=== PATIENT | male | born 1945 | race Caucasian/White ===

== ENCOUNTER 2025-01-24 11:17 | Inpatient (IN) | payer MEDICARE, SELFPAY ==
[2025-01-24] VITALS (53 sets, daily range): BP systolic 56–195; BP diastolic 27–100; PULSE 72–126; RESP 12–27; TEMP 33.2–36.7; O2SAT 90–100; BMI 41.0
--- NOTE | ~2025-01-24 | CT_ITS ---
CT brain wo con Ordering provider: Freddy Stafford MD History: 79 years Male with . fall . Comparison: February 07, 2014 Technique: CT of the head without contrast. Radiation reduction technique utilized. The dose-length p roduct was 681 mGy-cm. FINDINGS: BRAIN PARENCHYMA AND CSF SPACES: Mild leukoaraiosis and diffuse cortical atrophy. Mild atheromatous d isease. No midline shift, mass effect or hemorrhage. The brain parenchyma and CSF spaces are otherwi se normal. VISUALIZED PARANASAL SINUSES: Right maxillary, left sphenoid and bilateral ethmoid sinus disease. Oth erwise, Well aerated. MASTOIDS: Well aerated. BONES: The bones appear intact. SOFT TISSUES: Visualized nasopharynx is normal. Superficial soft tissues are normal. IMPRESSION: No acute intracranial findings. Reviewed, dictated and finalized at location A.
--- NOTE | ~2025-01-24 | XR_ITS ---
XR abdomen gastric tube insert Ordering provider: Freddy Stafford MD History: . OG PLACEMENT . Comparison: None. FINDINGS/impression: No definite orogastric tube is seen in the stomach. Tube is seen in the mid thoracic area which may be endotracheal tube or nasogastric tube. Reviewed, dictated and finalized at location A.
--- NOTE | ~2025-01-24 | CT_ITS ---
EXAMINATION: CTA chest abdomen pelvis DATE: 01/24/2025 14:14 INDICATION: V. Fib cardiac arrest. Assess for dissection. TECHNIQUE: Computed tomographic angiography (CTA) of the chest, abdomen, and pelvis was performed wit hout and with 100 mL Omnipaque-350 intravenous contrast. Volume-rendered 3D-reconstructions of the ao rta and large arteries were constructed by the technologist on a separate workstation. Automated expo sure control and iterative reconstruction technique were employed. The dose-length product was [id number] mGy-cm. COMPARISON: None FINDINGS: Chest: Endotracheal tube tip 3.3 cm above the jony. Nasogastric tube with distal tip in proximal side port in the body of the stomach. Dependent consolidation in the bilateral upper and lower lobes due to at least in part to atelectasis however there is decreased density with some of the interspaces and cou ld not exclude superimposed pneumonia. Perihilar predominant groundglass opacities in the bilateral u pper lobes which could represent additional atelectasis, pulmonary edema or pneumonia. Calcified pulm onary nodules in the left upper and right lower lobes consistent with old granulomatous disease. No p leural effusion. Cardiomegaly. Atherosclerotic coronary artery calcific lesion. No pericardial effusi on. Bilateral gynecomastia. Severe thoracic spondylosis. Abdomen and pelvis: Liver, gallbladder, spleen, pancreas, bilateral adrenal glands are normal. There are bilateral renal cysts measuring up to 5.0 cm. Centeno catheter within the decompressed bladder. Prostatomegaly. There i s fluid throughout the large and small bowel consistent with diarrhea. There is moderate colonic dive rticulosis with a sigmoid and descending colon predominance without adjacent inflammatory change to s uggest diverticulitis. Normal appendix. No free intraperitoneal gas or fluid. No pathologically enla rged abdominal or pelvic lymphadenopathy. There is calcified atherosclerosis of the normal caliber ao rta and many of the other arteries without hemodynamically significant stenosis or dissection.. [place] re lumbar spondylosis. IMPRESSION: 1. Scattered nonhemodynamically significant atherosclerotic plaque along the normal caliber thoracic and abdominal aorta with no dissection. 2. Consolidation in the dependent aspect of both lungs due to at least in part atelectasis however branham perimposed pneumonia not excludable. 3. Mild bilateral perihilar groundglass opacities which could represent atelectasis, mild pulmonary e danica or pneumonia. 4. Cardiomegaly. 5. Fluid throughout the large and small bowel consistent with nonspecific diarrhea. Reviewed, dictated and finalized at location A. IMPRESSION: 1. Scattered nonhemodynamically significant atherosclerotic plaque along the no rmal caliber thoracic and abdominal aorta with no dissection. 2. Consolidation in the dependent aspect of both lungs due to at least in part atelectasis however superimposed pneumonia not excludable. 3. Mild bilateral perihilar groundglass opacities which could represent atelect asis, mild pulmonary edema or pneumonia. 4. Cardiomegaly. 5. Fluid throughout the large and small bowel consistent with nonspecific diarr hea.
--- NOTE | ~2025-01-24 | XR_ITS ---
XR chest ET placement Ordering provider: Freddy Stafford MD History: 79 years Male with . post intubation . Comparison: None. FINDINGS: MEDIASTINUM: The cardiac silhouette is moderately enlarged. Congestive cas. Endotracheal tube with t he tip above the jony. Retraction is advised. LUNGS: No effusions or pneumothorax. Bilateral perihilar, upper and lower lobe opacification suggesti ve of pneumonia versus pulmonary edema. OTHER: No free air under the diaphragm. IMPRESSION: bilateral pneumonia versus pulmonary edema. Endotracheal tube with the tip above the jony. Retraction by about 2 to 3 cm is advised. Reviewed, dictated and finalized at location A.
--- NOTE | ~2025-01-24 | XR_ITS ---
XR abdomen gastric tube rechec INDICATION: Evaluate NG tube position. TECHNIQUE: Limited KUB perform for evaluating NG tube . COMPARISON: No prior studies for comparison. FINDINGS: NG tube tip in the stomach. Visualized bowel gas pattern is unremarkable. IMPRESSION: 1: NG tube tip in the stomach. Reviewed, dictated and finalized at location B.
--- NOTE | 2025-01-24 11:22 | ECG_ITS ---
Test Date: 2025-01-24 11:20:26 Measurements Intervals [place] Rate: 139 P: 34 FL: 129 QRS: 121 QRSD: 160 T: 0 QT: 243 QTc: 370 Interpretive Statements UNDETERMINED REGULAR RHYTHM ST ELEVATION IN AVR AND ANTEROSEPTAL LEADS WITH RECIPROCAL CHANGES, CONCERNING FOR ACUTE INJURY PATTERN MARKED RIGHT AXIS DEVIATION [QRS AXIS > 100] INTRAVENTRICULAR CONDUCTION DELAY [130+ ms QRS DURATION] CRITICAL ECG No previous ECG available for comparison Electronically Signed On 01-24-2025 13:20:21 CDT by Homero Hicks M.D.
--- NOTE | 2025-01-24 11:30 | PC.NURSE ---
1125: 30mg Etomidate and 120mg of Succinylcholine per EDP Dr. Stafford. VORB. 1128: pt intubated. 7.5mm tube. 23cm at the lip.
[2025-01-24 11:35] LABS: Basophils Absolute Auto 0.1 K/mm3 (0.0-0.1); Basophils Percent Auto 0.6 % (0.2-1.2); Eosinophils Absolute Auto 0.3 K/mm3 (0-0.3); Eosinophils Percent Auto 2.6 % (0-4.4); Hematocrit 44.3 % (42.0-52.0); Hemoglobin 13.4 g/dL (14.0-18.0); Immature Granulocyte Absolute 0.37 K/mm3 (0.00-0.031); Immature Granulocyte Percent A 3.1 % (0-0.5); Lymphocytes Percent Auto 52.9 % (18.3-44.2); Mean Corpuscular HGB Conc 30.2 g/dl (32-36); Mean Corpuscular Volume 99.3 fl (80-100); Monocytes Absolute Auto 0.4 K/mm3 (0.1-0.6); Monocytes Percent Auto 2.9 % (2.6-8.5); Neutrophils Absolute Auto 4.6 K/mm3 (1.3-6.7); Neutrophils Percent Auto 37.9 % (45.5-73.1); Platelet Count Result 217 k/mm3 (150-375); Red Blood Count 4.46 M/mm3 (4.6-6.20); Red Cell Distribution Width 13.5 % (11.5-14.5); White Blood Count 12.1 K/mm3 (4.5-10.0)
[2025-01-24] MEDS: CALCIUM GLUCONATE 1,000 MG/10 ML VIAL 1000 MG IV PUSH (11:49)
--- NOTE | 2025-01-24 11:50 | PC.NURSE ---
per Dr. Stafford, gave 1000mg of calcium gluconate and 4.2g of Sodium Bicarb. Repeat EKG 10min after administration. JONG.
[2025-01-24 11:51] LABS: INR 1.1; Prothrombin Time 14.8 Seconds (11.1-14.7)
[2025-01-24 11:52] LABS: Alanine Aminotransferase 250 U/L (6-50); Albumin Level 4.1 g/dL (3.5-5.1); Alkaline Phosphatase 69 U/L (38-126); Anion Gap 16 mmol/L (4-12); Aspartate Amino Transferase 287 U/L (17-59); Bilirubin,Total 0.7 mg/dL (0.2-1.3); Blood Urea Nitrogen 20 mg/dL (9-20); Carbon Dioxide 22 mmol/L (22-30); Chloride 102 mmol/L (98-107); Estimated Glomerular Filt Rate 45; Glucose 277 mg/dL (65-110); Potassium 3.2 mmol/L (3.4-5.0); Sodium 140 mmol/L (137-145)
--- OUTSIDE RECORDS SUMMARY | 2025-01-24 11:53 | XMS_ITS | Clinical Summary ---
Author Organization [facility] Address [address] [place] [address] Care Team Providers Care Insurance Claims Analyst Name Role Phone Unavailable Primary Care Provider Unavailabl e Source Comments [facility],non-owned Affiliates and Associated Physician Practices is amultiple site organization consisting of ambulatory clinics and hospital sitesin [place], [place], [place] and [place]. This disclosure is being madepursuant to the Care Everywhere program and may not contain all information available regarding this patient. 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 Gender Identity Not on file Sexual Orientation Not on file Plan of Treatment Health Maintenance Due Date Last Done Comments DTAP/TDAP/TD VACCINES (1 - Tdap) 12/03/1963 PNEUMOCOCCAL VACCINE 50+ (1 of 1 - PCV) 1994 ZOSTER VACCINE (1 of 2) 1994 Respiratory Syncytial Virus (RSV) Vaccine Pt: or over 60 yrs (1 - 1-dose 75+ series) 12/03/2019 COVID-19 VACCINE ( - 2023-2 5 season) 2024 DEPRESSION SCREENING 09/06/2024 MEDICARE AWV CALENDAR YEAR 2024 INFLUENZA VACCINE (Season Ended) 2025 HEPATITIS B VACCINE Aged Out No longe r eligible based on patient's age to complete this topic HIB VACCINE Aged Out No longer eligi ble based on patient's age to complete this topic HPV VACCINE Aged Out No longer eligi ble based on patient's age to complete this topic MENINGOCOCCAL (Group B) VACC INE SHARED DECISION-MAKING Aged Out No longer eligibl e based on patient's age to complete this topic MENINGOCOCCAL GROUPS A/C/Y/W VACCINE Aged Out No longer eligible b ased on patient's age to complete this topic Insurance [facility] MEDICARE ADV HMO & PPO
--- OUTSIDE RECORDS SUMMARY | 2025-01-24 11:53 | XMS_ITS | Encounter Summary ---
Author Organization [facility] Address [address] [place] [address] Care Team Providers Care Access Developer Name Role Phone Unavailable Primary Care Provider Unavailabl e Encounter Details Date Type Department Care Team (Late st Contact Info) Description 08/19/2023 Lab Requisition [facility] [address] [place] [id number] Erin Rosenthal MD [address] [place] [address] [place] [address] Inflamed seborrheic keratosis Social History Tobacco Use Types Packs/Day Years Used Date Smoking Tobacco: Never Assessed Sex and Gender Information Value Date Recorded Sex Assigned at Not on file 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 Gender Identity Not on file Sexual Orientation Not on file documented as of this encounter Plan of Treatment Not on file documented as of this encounter Procedures Procedure Name Priority Date/Time Associated Diagnosis Comments DERMATOPATHOLOGY Routine 08/19/2023 3:33 AM 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 SKIN, right medial malar cheek: SEBORRHEIC KERATOSIS, INFLAMED (L82.0) INTRADERMAL MELANOCYTIC NEVUS (D22.39) 3 5:01 PM [facility] DERMATOPATHOLOGY LABORATORY at [address] WORKERS COMPENSATION ATTORNEY Clinical History Irritated Seborrheic Keratosis 3 5:01 PM [facility] DERMATOPATHOLOGY [facility]OR[facility] Gross Description Specimen A: Received is one formalin filled container labeled with the patient's name and designated right medial malar cheek. The specimen consists of a shave biopsy measuring 10x7x4 mm. Jar 0. 3 5:01 PM [facility] DERMATOPATHOLOGY [facility]ORAT[facility] Microscopic Description Specimen A. SKIN, right medial malar cheek: There is hyperkeratosis, parakeratosis, papillomatosis, and acanthosis of the epidermis. There is a lymphohistiocytic infiltrate within the papillary dermis that is focally lichenoid. There are nests of cytologically bland melanocytes within the dermis that mature with depth. 3 5:01 PM [facility] DERMATOPATHOLOGY [facility]ORATORY Disclaimer An external and internal positive and negative controls are appropriate for the histochemical, immunohistochemical and immunofluorescence stain(s) in this case (if any), except where stated explicitly. The performance characteristics of the stain(s) cited in this report were developed and its performance characteristic determined by the Dermatopathology Laboratory at [facility], directed by Dr. Donald Reaves. These tests need not be, and therefore are not, approved by the [place] Food and Drug Administration. The tests are used for clinical purposes. 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
[2025-01-24] MEDS: FENTANYL 2,500MCG/NS250ML(*CRX 2,500 MCG/250 ML BAG IV CONT (12:09)
[2025-01-24] MEDS: MIDAZOLAM 100MG/NS 100ML(*CRX) 100 MG/100 ML BAG IV CONT (12:10)
--- NOTE | 2025-01-24 12:24 | ECG_ITS ---
Test Date: 2025-01-24 12:29:49 Measurements Intervals [place] Rate: 89 P: 41 NV: 178 QRS: 72 QRSD: 120 T: 23 QT: 369 QTc: 450 Interpretive Statements SINUS RHYTHM MODERATE INTRAVENTRICULAR CONDUCTION DELAY [105+ ms QRS DURATION, 80+ ms Q/S IN V1/V2, NO Q AND 60+ ms R IN I/aVL/V5/V6] INFERIOR ST-ELEVATION CONSISTENT WITH ACUTE INJURY PATTERN WITH RECIPROCAL CHANGES CRITICAL ECG Electronically Signed On 01-24-2025 13:21:35 CDT by Homero Hicks M.D.
[2025-01-24 12:36] LABS: Magnesium 2.4 mg/dL (1.6-2.3)
--- NOTE | 2025-01-24 12:45 | PC.NURSE ---
due to impression of abdominal X-ray of OG tube not seen, removed the tube and inserted new one. auscultation with insufflation of air.
[2025-01-24 12:47] LABS: NT Pro B Type Natriuretic Pept 796 pg/mL (19.9-100); Troponin I 0.129 ng/mL (0.000-0.034)
--- NOTE | 2025-01-24 13:00 | ED_ITS ---
HPI - CPR General Chief Complaint: Cardiac Arrest/CPR Stated Complaint: post cardiac arrest/ROSC Time Seen by Provider: 01/24/25 11:27 History of Present Illness HPI narrative: Patient is an 79-year-old male who presents ER after having witnessed cardiac arrest. Patient had been having back pain recently. He also been having intermittent dizziness over last few months. Recently had an MRI of the brain but unknown what the results were. That was at [facility]. While watching TV with his patient suddenly jerked and became unresponsive. EMS arrived shortly thereafter. He was in V-tach and received 1 shock. He then went to [facility] before having return of spontaneous circulation. Here patient has supraglottic airway in place and is breathing on his own. The initial EKG with wide QRS and nonspecific ST changes. Related Data Home Medications ?Medication ?Instructions ?Recorded ?Confirmed ?Last Taken ?Type atorvastatin 10 mg tablet 10 mg PO QPM 01/24/25 01/24/25 01/23/25 History calcium carbonate (Tums) 300 mg PO QID PRN dyspepsia 01/24/25 01/24/25 01/23/25 History hydrochlorothiazide 12.5 mg capsule 12.5 mg PO QAM 01/24/25 01/24/25 01/23/25 History multivitamin (One Daily 1 tablet PO DAILY 01/24/25 01/24/25 01/23/25 History Multivitamin tablet) Allergies Allergy/AdvReac Type Severity Reaction Status Date / Time No Known Allergies Allergy Verified 09/03/20 09:53 Review of Systems 2 Review of Systems: ROS unobtainable: Yes unobtainable due to endotracheal tube PMFSH Past Medical History Medical History (Updated 01/24/25 @ 14:01 by Elbert Mora MD) Hyperlipidemia Hypertension Surgical History Surgical History History of excision of mass 08/16/20 excision of 3cm back mass Status post osteotomy tibia History of bilateral knee replacement History of bilateral knee arthroplasty History of carpal tunnel repair History of vasectomy History of hemorrhoidectomy History of tonsillectomy History of colonoscopy Social History Social History Smoking status: Former smoker Alcohol intake: never Alcohol use details: rare Substance use: never Substance use type: does not use Living arrangements: with family Occupation/Education: retired Spiritual care concerns: No Exam 2 Narrative: GENERAL: Ill-appearing, morbidly obese. HEAD: Normocephalic, atraumatic. EYES: PERRL and EOMI. ENT: Mucous membranes moist. CHEST: Clear to auscultation. No respiratory distress. HEART: Regular rate and rhythm. Normal peripheral pulses. ABDOMEN: Soft, nontender, nondistended. EXTREMITIES: No deformity of the upper lower extremities. Dislodged intraosseous line right tibia. SKIN: Warm, dry, no rash. NEURO: GCS 3. Not opening his eyes on his own nor responding to noxious stimuli. Patient is breathing on his own and has occasional gag to supraglottic airway. Course Course Emergency Course: Cardiology consulted after initial EKG. Will treat his hyperkalemia in performed repeat EKG. Intubated in the ER for airway protection. Fentanyl and Versed for sedation. Initial temperature 94? but it went up to 97.3? F with just a blanket placed on him. Blood pressure 159/76 and heart rate of 88. CT of the brain negative for bleed. Repeat EKG shows elevation in lead III and AVR. Depressions in I, aVL, V2 through V6. Cardiology will take patient to cardiac cath lab technologist. Patient's daughter and updated on treatment plan. ICU physician contacted as well. ET tube pulled back 2.5 cm after x-ray. Vital Signs Vital signs: Vital Signs Pulse Rate 126 H 01/24/25 11:20 Respiratory Rate 20 01/24/25 11:20 Blood Pressure 56/27 L 01/24/25 11:20 Pulse Oximetry 95 01/24/25 11:20 Oxygen Delivery Bag Valve Mask 01/24/25 11:20 Temperature 97.1 F L 01/24/25 16:45 Pulse Rate 97 01/24/25 17:15 Respiratory Rate 19 01/24/25 16:45 Blood Pressure 107/64 01/24/25 17:15 Pulse Oximetry 100 01/24/25 17:10 Oxygen Delivery Mechanical Ventilation 01/24/25 17:10 Fraction of Inspired Oxygen 50 01/24/25 17:10 Procedures Intubation Intubation #1: Time out performed: Yes sedative: Etomidate Mg Given: 30 paralytic: Succinylcholine Mg Given: 120 Laryngoscope: fiber optic video scope Tube Size (cm): Cuffed Method of Intubation: orotracheal Number of Attempts: 1 Tube Secured Depth (cm): 23 Tube Secured Location: lips Tube Placement Confirmation: visualized tube passing through cords, equal breath sounds bilaterally, no breath sounds over epigastrium and confirmation by capnometry Patient Tolerated Procedure: well Intubation Complications: none Additional Comments: Intubation preformed by Lisa TALBOT MDM - Cardiac Arrest/CPR Lab Data 01/24/25 16:35 01/24/25 11:28 Labs: Lab Results 01/24/25 01/24/25 01/24/25 Range/Units 11:28 11:46 13:48 WBC 12.1 H (4.5-10.0) K/mm3 RBC 4.46 L (4.6-6.20) M/mm3 Hgb 13.4 L (14.0-18.0) g/dL Hct 44.3 (42.0-52.0) % MCV 99.3 (80-100) fl MCH 30.0 (26-34) pg MCHC 30.2 L (32-36) g/dl RDW 13.5 (11.5-14.5) % Plt Count 217 (150-375) k/mm3 MPV 10.0 (7.4-10.4) fl Immature Gran % (Auto) 3.1 H (0-0.5) % Neut % (Auto) 37.9 L (45.5-73.1) % Lymph % (Auto) 52.9 H (18.3-44.2) % [place] % (Auto) 2.9 (2.6-8.5) % Eos % (Auto) 2.6 (0-4.4) % Baso % (Auto) 0.6 (0.2-1.2) % Lymph # (Auto) 6.40 H (0.9-3.2) K/mm3 [place] # (Auto) 0.4 (0.1-0.6) K/mm3 Eos # (Auto) 0.3 (0-0.3) K/mm3 Baso # (Auto) 0.1 (0.0-0.1) K/mm3 Abs Immat Gran (auto) 0.37 H (0.00-0.031) K/mm3 Absolute Neuts (auto) 4.6 (1.3-6.7) K/mm3 Absolute Nucleated RBC 0.000 (0.0-0.012) K/mm3 Nucleated RBC % 0.0 (0.0-0.2) % PT 14.8 H (11.1-14.7) Seconds INR 1.1 APTT 29.0 (22.3-36.8) Seconds Minute Volume Vent Mode Tidal Volume ml PEEP cmH2O Peak Inspir Pressure Pressure Support Sodium 140 (137-145) mmol/L Potassium 3.2 L (3.4-5.0) mmol/L Chloride 102 (98-107) mmol/L Carbon Dioxide 22 (22-30) mmol/L Anion Gap 16 H (4-12) mmol/L BUN 20 (9-20) mg/dL Creatinine 1.50 H (0.7-1.3) mg/dL Estim Creat Clear Calc Not Reportable Estimated GFR 45 L (59 - ) Glucose 277 H (65-110) mg/dL Hemoglobin A1c 5.5 (<5.7) % Lactic Acid 6.6 H* (0.7-2.0) mmol/L Calcium 9.0 (8.4-10.2) mg/dL Magnesium 2.4 H (1.6-2.3) mg/dL Total Bilirubin 0.7 (0.2-1.3) mg/dL AST 287 H (17-59) U/L ALT 250 H (6-50) U/L Alkaline Phosphatase 69 (38-126) U/L Total Creatine Kinase 45 L (55-170) U/L Troponin I 0.129 H* (0.000-0.034) ng/mL NT-Pro-B Natriuret Pep 796 H (19.9-100) pg/mL Total Protein 7.0 (6.3-8.2) g/dL Albumin 4.1 (3.5-5.1) g/dL Triglycerides 281 H (<150) mg/dL Cholesterol 175 (0-200) mg/dL LDL Cholesterol Direct 77 mg/dL HDL Direct 35 mg/dL Procalcitonin 0.1 ng/mL Urine Color Dark yellow (Yellow) Urine Appearance Turbid H (Clear) Urine pH 6.0 (5.0-9.0) Ur Specific [place] 1.020 (1.001-1.035) Urine Protein 4+ H (Negative) mg/dL Urine Glucose (UA) 1+ H (Negative) mg/dL Urine Ketones Trace H (Negative) mg/dL Ur Blood (Man) 3+ H (Negative) Urine Nitrate Negative (Negative) Urine Bilirubin Negative (Negative) Urine Urobilinogen 1.0 (<2.0) mg/dL Add Ur Microanalysis Reviewed Leukocyte Esterase Rfl Trace H (Negative) CHUCK/UL Urine RBC 51-100 H (0-2) /hpf Urine WBC 51-100 H (0-3) /hpf Ur Squamous Epith Cells Few (Few) /hpf Urine Bacteria 3+ H /hpf Urine Casts >20 Granular Casts 3-4 H (None) /lpf Urine Mucus Present /lpf Urine Opiates Screen Negative (Negative) Urine Methadone Screen Negative (Negative) Ur Barbiturates Screen Negative (Negative) Ur Phencyclidine Scrn Negative (Negative) Ur Amphetamine Screen Negative (Negative) U Benzodiazepines Scrn Negative (Negative) Urine Cocaine Screen Negative (Negative) U Cannabinoids Screen Negative (Negative) 01/24/25 Range/Units 13:59 WBC (4.5-10.0) K/mm3 RBC (4.6-6.20) M/mm3 Hgb (14.0-18.0) g/dL Hct (42.0-52.0) % MCV (80-100) fl MCH (26-34) pg MCHC (32-36) g/dl RDW (11.5-14.5) % Plt Count (150-375) k/mm3 MPV (7.4-10.4) fl Immature Gran % (Auto) (0-0.5) % Neut % (Auto) (45.5-73.1) % Lymph % (Auto) (18.3-44.2) % [place] % (Auto) (2.6-8.5) % Eos % (Auto) (0-4.4) % Baso % (Auto) (0.2-1.2) % Lymph # (Auto) (0.9-3.2) K/mm3 [place] # (Auto) (0.1-0.6) K/mm3 Eos # (Auto) (0-0.3) K/mm3 Baso # (Auto) (0.0-0.1) K/mm3 Abs Immat Gran (auto) (0.00-0.031) K/mm3 Absolute Neuts (auto) (1.3-6.7) K/mm3 Absolute Nucleated RBC (0.0-0.012) K/mm3 Nucleated RBC % (0.0-0.2) % PT (11.1-14.7) Seconds INR APTT (22.3-36.8) Seconds Minute Volume Not Reportable Vent Mode Cmv Tidal Volume 420 ml PEEP 8 cmH2O Peak Inspir Pressure Not Reportable Pressure Support Not Reportable Sodium (137-145) mmol/L Potassium (3.4-5.0) mmol/L Chloride (98-107) mmol/L Carbon Dioxide (22-30) mmol/L Anion Gap (4-12) mmol/L BUN (9-20) mg/dL Creatinine (0.7-1.3) mg/dL Estim Creat Clear Calc Estimated GFR (59 - ) Glucose (65-110) mg/dL Hemoglobin A1c (<5.7) % Lactic Acid (0.7-2.0) mmol/L Calcium (8.4-10.2) mg/dL Magnesium (1.6-2.3) mg/dL Total Bilirubin (0.2-1.3) mg/dL AST (17-59) U/L ALT (6-50) U/L Alkaline Phosphatase (38-126) U/L Total Creatine Kinase (55-170) U/L Troponin I (0.000-0.034) ng/mL NT-Pro-B Natriuret Pep (19.9-100) pg/mL Total Protein (6.3-8.2) g/dL Albumin (3.5-5.1) g/dL Triglycerides (<150) mg/dL Cholesterol (0-200) mg/dL LDL Cholesterol Direct mg/dL HDL Direct mg/dL Procalcitonin ng/mL Urine Color (Yellow) Urine Appearance (Clear) Urine pH (5.0-9.0) Ur Specific [place] (1.001-1.035) Urine Protein (Negative) mg/dL Urine Glucose (UA) (Negative) mg/dL Urine Ketones (Negative) mg/dL Ur Blood (Man) (Negative) Urine Nitrate (Negative) Urine Bilirubin (Negative) Urine Urobilinogen (<2.0) mg/dL Add Ur Microanalysis Leukocyte Esterase Rfl (Negative) CHUCK/UL Urine RBC (0-2) /hpf Urine WBC (0-3) /hpf Ur Squamous Epith Cells (Few) /hpf Urine Bacteria /hpf Urine Casts Granular Casts (None) /lpf Urine Mucus /lpf Urine Opiates Screen (Negative) Urine Methadone Screen (Negative) Ur Barbiturates Screen (Negative) Ur Phencyclidine Scrn (Negative) Ur Amphetamine Screen (Negative) U Benzodiazepines Scrn (Negative) Urine Cocaine Screen (Negative) U Cannabinoids Screen (Negative) ABG Data ABG results: 01/24/25 13:59 Puncture Site Left radial ABG pH 7.351 ABG pCO2 40.7 ABG pO2 90.0 ABG PO2/FiO2 Ratio 1.29 ABG HCO3 22.0 ABG O2 Saturation 96.5 ABG O2 Content 19.4 ABG Base Excess -3.3 A-a Gradient 365.4 Oxyhemoglobin 95.5 Total Hemoglobin 14.4 O2 Delivery Device Ventilator O2 Liters/Min Not Reportable Vent Rate 18 FiO2 70 Imaging Data Radiologist's impression: ITS Impressions Chest X-Ray 01/24/25 11:49 IMPRESSION: bilateral pneumonia versus pulmonary edema. Endotracheal tube with the tip above the jony. Retraction by about 2 to 3 cm is advised. Abdomen X-Ray 01/24/25 12:48 IMPRESSION: 1: NG tube tip in the stomach. Head CT 01/24/25 12:51 IMPRESSION: No acute intracranial findings. ECG Data EKG #2: ECG completion date: 01/24/25 ECG completion time: 12:29 EKG Interpretation: normal rate (89), sinus rhythm, no ectopy, ST depression (I, aVL, V2-6) and ST elevation (III, VR) Critical Care Time Critical Care Time Critical Care Time: Yes Total Critical Care Time: 45 Discharge Plan Discharge Clinical Impression: Ventricular tachycardia, Non-ST elevation ME (NSTEMI) Patient Disposition: Still a Patient Condition: Critical
[2025-01-24] MEDS: TICAGRELOR 90 MG TABLET 180 MG FEED TUBE (13:04)
[2025-01-24] MEDS: HEPARIN SODIUM 5,000 UNITS/ML VIAL 4000 UNITS IV PUSH (13:15)
--- NOTE | 2025-01-24 13:24 | P.HP_ITS ---
H&P: HPI History of Present Illness Date/Time: 01/24/25 13:24 Chief Complaint: Cardiac arrest Narrative: Shayan is an 79 year old male with hypertension, hyperlipidemia who presented to [facility] ED with cardiac arrest. Arrested at home, which was witnessed by . 911 was called immediately, and EMS arrived shortly thereafter ([place] live around the corner from the fire station). ACLS started by EMS. Noted to be in VT s/p 1 shock. Initial EKG in the ED showed ST elevation in AVR, V1, III with diffuse depressions in other leads with IVCD. Potassium 3.2. Repeat EKG showed sinus rhythm with ST elevation in III with subtle ST elevation in AVF with reciprocal ST depressions. CT brain with no acute findings. CXR with bilateral pneumonia vs pulmonary edema. History cannot be obtained from the patient as he is intubated. History obtained from the chart, medical team, and family. Review of Systems Review of Systems: ROS unobtainable: Yes unobtainable due to endotracheal tube PMFSH Past Medical History Medical History (Updated 01/24/25 @ 14:01 by Elbert Mora MD) Hyperlipidemia Hypertension Surgical History Surgical History History of excision of mass 08/16/20 excision of 3cm back mass Status post osteotomy tibia History of bilateral knee replacement History of bilateral knee arthroplasty History of carpal tunnel repair History of vasectomy History of hemorrhoidectomy History of tonsillectomy History of colonoscopy Social History Social History Alcohol intake: current Alcohol use details: rare Living arrangements: with family Occupation/Education: retired Meds Home Medications and Allergies Home Medications ?Medication ?Instructions ?Recorded ?Confirmed ?Type aspirin 81 mg chewable tablet 81 mg PO DAILY 07/26/20 09/03/20 History hydrochlorothiazide 25 mg tablet 25 mg PO DAILY 07/26/20 09/03/20 History Allergies Allergy/AdvReac Type Severity Reaction Status Date / Time No Known Allergies Allergy Verified 09/03/20 09:53 Vital Signs Vital Signs - 24 hr 01/24/25 11:20 01/24/25 11:30 01/24/25 11:42 Temperature Pulse Rate 126 H 103 H Respiratory Rate 20 14 Blood Pressure 56/27 L 91/56 L Pulse Oximetry 95 100 100 Oxygen Delivery Bag Valve Mask Mechanical Ventilation Fraction of Inspired Oxygen 01/24/25 11:47 01/24/25 11:59 01/24/25 12:09 Temperature 33.9 C L Pulse Rate 102 H 92 94 Respiratory Rate 18 24 H Blood Pressure 98/63 L Pulse Oximetry 98 95 Oxygen Delivery Mechanical Ventilation Fraction of Inspired Oxygen 65 01/24/25 12:10 01/24/25 12:16 01/24/25 12:33 Temperature 36.2 C L 36.5 C Pulse Rate 88 90 91 Respiratory Rate 12 20 18 Blood Pressure 113/71 118/67 Pulse Oximetry 94 95 Oxygen Delivery Fraction of Inspired Oxygen 01/24/25 13:17 01/24/25 13:18 Temperature Pulse Rate 88 72 Respiratory Rate 21 H 26 H Blood Pressure Pulse Oximetry Oxygen Delivery Fraction of Inspired Oxygen Exam Const: Other: Critically il male, intubated/sedated, on mechanical ventilation HENMT: Other: OETT in place Resp: Other: On mechanical ventilation Cardio: Rate: regular rate Rhythm: regular rhythm Neuro: Other: Sedated H&P: Results Labs Labs: Short CBC 01/24/25 Range/Units 11:28 WBC 12.1 H (4.5-10.0) K/mm3 Hgb 13.4 L (14.0-18.0) g/dL Hct 44.3 (42.0-52.0) % Plt Count 217 (150-375) k/mm3 BMP 01/24/25 11:28 Sodium 140 Potassium 3.2 L Chloride 102 Carbon Dioxide 22 BUN 20 Creatinine 1.50 H Glucose 277 H Calcium 9.0 Cardiac Enzymes 01/24/25 Range/Units 11:28 Troponin I 0.129 H* (0.000-0.034) ng/mL Liver Function 01/24/25 Range/Units 11:28 Total Bilirubin 0.7 (0.2-1.3) mg/dL AST 287 H (17-59) U/L ALT 250 H (6-50) U/L Alkaline Phosphatase 69 (38-126) U/L Albumin 4.1 (3.5-5.1) g/dL Assessment and Plan Assessment and plan (1) Cardiac arrest: Code(s): I46.9 - Cardiac arrest, cause unspecified Status: Acute Plan 1. VT cardiac arrest 2. Acute coronary syndrome / MVCAD 3. Acute respiratory failure requiring mechanical ventilation 4. Hypertension 5. Hyperlipidemia 6. Possible acute kidney injury. Baseline renal function not known. PLAN: -LHC shows multivessel coronary artery disease involving distal left main and 2V DOLPHIN RESEARCHER of LCX and RCA. LVEDP elevated at 30mmHg. IABP placed in cardiac cath lab radiology technologist. Will transfer patient to tertiary center for CT Surgery evaluation for surgical revascularization. -Continue Heparin drip per ACS protocol. -Given VT arrest, will start Amiodarone drip. -TTE pending. -Continue ASA 81mg once daily, high intensity statin. -Hold off on additional P2Y12 inhibitors pending CABG eval. Recommendations and plan discussed with ICU Physician
--- NOTE | 2025-01-24 13:31 | P.SEDATION_ITS ---
Moderate Sedation Note-Pt Data Patient Data Diagnosis: Cardiac arrest, STEMI Present Complaint: Cardiac arrest, STEMI Procedure to be performed/Plan: Primary PCI Allergies Allergy/AdvReac Type Severity Reaction Status Date / Time No Known Allergies Allergy Verified 09/03/20 09:53 Home Medications ?Medication ?Instructions ?Recorded ?Confirmed ?Type aspirin 81 mg chewable tablet 81 mg PO DAILY 07/26/20 09/03/20 History hydrochlorothiazide 25 mg tablet 25 mg PO DAILY 07/26/20 09/03/20 History Current Medications: Active Medications Fentanyl Citrate (Fentanyl 2,500 Mcg/Ns 250 Ml) 2,500 mcg in 250 mls @ 5 mls/hr IV CONT .Q50H STA; Protocol Stop: 01/26/25 13:26 Last Titration: 01/24/25 13:18 Dose: 50 mcg/hr, 5 mls/hr Midazolam HCl (Versed 100 Mg/Ns 100 Ml) 100 mg in 100 mls @ 2 mls/hr IV CONT .Q50H STA; Protocol Stop: 01/26/25 13:26 Last Titration: 01/24/25 13:17 Dose: 2 mg/hr, 2 mls/hr Sedation/Anesthesia: No previous sedation/anesthesia problems (including family history). [facility] Past Medical History Medical History Hypertension Surgical History Surgical History History of excision of mass 08/16/20 excision of 3cm back mass Status post osteotomy tibia History of bilateral knee replacement History of bilateral knee arthroplasty History of carpal tunnel repair History of vasectomy History of hemorrhoidectomy History of tonsillectomy History of colonoscopy Social History Social History Alcohol intake: current Alcohol use details: rare Living arrangements: with family Occupation/Education: retired Mod Sed Physical Exam Physical Exam Pre Procedural Exam: Normal: Heart Rate and Heart Rhythm and Variation: Appearance (Critically ill male, intubated/sedated), Lungs (On mechanical ventilation ) and Neuro Exam (Sedated) Hours since solid foods: 0 Hours since liquid intake: 0 Mallampati Classification: class III (Unable to assess as patient already intubated ) Internal Medicine - PN: Obj Da Vital Signs Vital Signs: Vital Signs - 24 hr 01/24/25 11:20 01/24/25 11:30 01/24/25 11:42 Temperature Pulse Rate 126 H 103 H Respiratory Rate 20 14 Blood Pressure 56/27 L 91/56 L Pulse Oximetry 95 100 100 Oxygen Delivery Bag Valve Mask Mechanical Ventilation Fraction of Inspired Oxygen 01/24/25 11:47 01/24/25 11:59 01/24/25 12:09 Temperature 33.9 C L Pulse Rate 102 H 92 94 Respiratory Rate 18 24 H Blood Pressure 98/63 L Pulse Oximetry 98 95 Oxygen Delivery Mechanical Ventilation Fraction of Inspired Oxygen 65 01/24/25 12:10 01/24/25 12:16 01/24/25 12:33 Temperature 36.2 C L 36.5 C Pulse Rate 88 90 91 Respiratory Rate 12 20 18 Blood Pressure 113/71 118/67 Pulse Oximetry 94 95 Oxygen Delivery Fraction of Inspired Oxygen 01/24/25 13:17 01/24/25 13:18 Temperature Pulse Rate 88 72 Respiratory Rate 21 H 26 H Blood Pressure Pulse Oximetry Oxygen Delivery Fraction of Inspired Oxygen Intake/Output Intake/Output: Intake & Output 01/21/25 01/22/25 01/23/25 01/24/25 23:59 23:59 23:59 23:59 Intake Total 4.0 Balance 4.0 Meds/Results Medications: Active Medications Generic Name Dose Route Start Last Admin Trade Name Freq PRN Reason Stop Dose Admin Fentanyl Citrate 2,500 mcg in 250 mls @ 5 mls/hr 01/24/25 11:27 01/24/25 13:18 Fentanyl 2,500 Mcg/Ns 250 Ml IV CONT 01/26/25 13:26 50 mcg/hr .Q50H STA 5 mls/hr Titration Protocol 50 MCG/HR Midazolam HCl 100 mg in 100 mls @ 2 mls/hr 01/24/25 11:27 01/24/25 13:17 Versed 100 Mg/Ns 100 Ml IV CONT 01/26/25 13:26 2 mg/hr .Q50H STA 2 mls/hr Titration Protocol 2 MG/HR Radiology Results: ITS Impressions Chest X-Ray 01/24/25 11:49 IMPRESSION: bilateral pneumonia versus pulmonary edema. Endotracheal tube with the tip above the jony. Retraction by about 2 to 3 cm is advised. Abdomen X-Ray 01/24/25 12:48 IMPRESSION: 1: NG tube tip in the stomach. Head CT 01/24/25 12:51 IMPRESSION: No acute intracranial findings. Labs 01/24/25 11:28 01/24/25 11:28 Labs: Laboratory Results - last 24 hr 01/24/25 01/24/25 11:28 11:46 WBC 12.1 H RBC 4.46 L Hgb 13.4 L Hct 44.3 MCV 99.3 MCH 30.0 MCHC 30.2 L RDW 13.5 Plt Count 217 MPV 10.0 Immature Gran % (Auto) 3.1 H Neut % (Auto) 37.9 L Lymph % (Auto) 52.9 H Spalding % (Auto) 2.9 Eos % (Auto) 2.6 Baso % (Auto) 0.6 Lymph # (Auto) 6.40 H [place] # (Auto) 0.4 Eos # (Auto) 0.3 Baso # (Auto) 0.1 Abs Immat Gran (auto) 0.37 H Absolute Neuts (auto) 4.6 Absolute Nucleated RBC 0.000 Nucleated RBC % 0.0 PT 14.8 H INR 1.1 APTT 29.0 Sodium 140 Potassium 3.2 L Chloride 102 Carbon Dioxide 22 Anion Gap 16 H BUN 20 Creatinine 1.50 H Estim Creat Clear Calc Not Reportable Estimated GFR 45 L Glucose 277 H Lactic Acid 6.6 H* Calcium 9.0 Magnesium 2.4 H Total Bilirubin 0.7 AST 287 H ALT 250 H Alkaline Phosphatase 69 Troponin I 0.129 H* NT-Pro-B Natriuret Pep 796 H Total Protein 7.0 Albumin 4.1 ASA Classification/Sedation ASA Classification/Sedation ASA Class: IV Emergent: Yes Risks: Risks, benefits and alternatives explained and patient/family accepted plan for sedation. Patient re-evaluated immediately prior to sedation.
--- OUTSIDE RECORDS SUMMARY | 2025-01-24 13:32 | XMS_ITS | Encounter Summary ---
Author Organization [facility] Address [address] [facility] [place] [address] Care Team Providers Care Senior Procurement Specialist Name Role Phone Unavailable Primary Care Provider Unavailabl e Encounter Details Date Type Department Care Team (Late st Contact Info) Description 08/19/2023 Lab Requisition [facility] Derm[facility] Lab [address] [place] [id number] Erin Rosenthal MD [address] [place] [address] [place] [address] Inflamed seborrheic keratosis Social History Tobacco Use Types Packs/Day Years Used Date Smoking Tobacco: Never Assessed Sex and Gender Information Value Date Recorded Sex Assigned at Not on file Legal Sex Male 5:30 AM RN PLASTIC SURGERY Gender Identity Not on file Sexual Orientation Not on file documented as of this encounter Plan of Treatment Not on file documented as of this encounter Procedures Procedure Name Priority Date/Time Associated Diagnosis Comments DERMATOPATHOLOGY Routine 08/19/2023 3:33 AM RN PLASTIC SURGERY Inflamed seborrheic keratosis documented in this encounter Results * DERMATOPATHOLOGY (08/19/2023 3:33 AM RN PLASTIC SURGERY) Case Report Dermatopathology Report Case: [id number] Authorizing Provider: Erin Rosenthal MD Collected: 08/19/2023 03:33 AM Ordering Location: [facility] Derm[facility] Lab Received: 08/20/2023 03:40 PM Pathologist: Jimena Arriaga MD Specimen: Skin, right medial malar cheek 3 5:01 PM RN PLASTIC SURGERY DERMATOPATHOLOGY LABORATORY Final Diagnosis Specimen A. SKIN, right medial malar cheek: SEBORRHEIC KERATOSIS, INFLAMED (L82.0) INTRADERMAL MELANOCYTIC NEVUS (D22.39) 3 5:01 PM [facility] DERMATOPATHOLOGY LABORATORY at 1701 RN PLASTIC SURGERY Clinical History Irritated Seborrheic Keratosis 3 5:01 PM [facility] DERMATOPATHOLOGY LABORATORY Gross Description Specimen A: Received is one formalin filled container labeled with the patient's name and designated right medial malar cheek. The specimen consists of a shave biopsy measuring 10x7x4 mm. Jar 0. 3 5:01 PM [facility] DERMATOPATHOLOGY LABORATORY Microscopic Description Specimen A. SKIN, right medial malar cheek: There is hyperkeratosis, parakeratosis, papillomatosis, and acanthosis of the epidermis. There is a lymphohistiocytic infiltrate within the papillary dermis that is focally lichenoid. There are nests of cytologically bland melanocytes within the dermis that mature with depth. 3 5:01 PM [facility] DERMATOPATHOLOGY LABORATORY Disclaimer An external and internal positive and negative controls are appropriate for the histochemical, immunohistochemical and immunofluorescence stain(s) in this case (if any), except where stated explicitly. The performance characteristics of the stain(s) cited in this report were developed and its performance characteristic determined by the Dermatopathology Laboratory at [facility], directed by Dr. Donald Reaves. These tests need not be, and therefore are not, approved by the [place] Food and Drug Administration. The tests are used for clinical purposes. Billing Codes Specimen Charges Stain Charges 59952 1 3 5:01 PM [facility] DERMATOPATHOLOGY LABORATORY Embedded Images 3 5:01 PM [facility] DERMATOPATHOLOGY LABORATORY Pathology/Cytolo gy TISSUE SPECIMEN FROM SKIN / Unknown 08/19/2023 3:33 AM RN PLASTIC SURGERY 08/20/2023 3:40 PM RN PLASTIC SURGERY us Erin Rosenthal MD LAB - PATHOLOGY/CYTOLOGY ORDERAB LES Final Result DERMATOPATHOLOGY LABORATORY [facility] - Department of Dermatology [address] [phone] documented in this encounter Visit Diagnoses Diagnosis Inflamed seborrheic keratosis documented in this encounter
--- OUTSIDE RECORDS SUMMARY | 2025-01-24 13:32 | XMS_ITS | Clinical Summary ---
Author Organization [facility] Address [address] [place] [address] Care Team Providers Care Security Guard Name Role Phone Unavailable Primary Care Provider Unavailabl e Source Comments [facility] [employer],non-owned Affiliates and Associated Physician Practices is amultiple site organization consisting of ambulatory clinics and hospital sitesin [place], [place], [place] and [place]. This disclosure is being madepursuant to the Care Everywhere program and may not contain all information available regarding this patient. 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
--- NOTE | 2025-01-24 13:49 | WPDCNINT ---
Assessment and Plan Assessment and plan (1) Acute respiratory failure: Code(s): J96.00 - Acute respiratory failure, unspecified whether with hypoxia or hypercapnia Status: Acute Assessment and Plan: Acute Respiratory failure secondary to . Cardiac arrest, pulmonary edema, questionable aspiration pneumonia Patient now intubated in the ER Continue full mechanical ventilation support to prevent hypoxemia/hypercarbia and end organ damage. Ventilator adjusted to CMV 450 rate 18 peep 8 and FiO2 70% Check ABG Low tidal volume ventilation strategy to prevent volutrauma Management of aspiration pneumonia as below CTA chest pending (2) Cardiac arrest: Code(s): I46.9 - Cardiac arrest, cause unspecified Status: Acute Assessment and Plan: V-tach cardiac arrest which converted to PEA Most likely etiology is myocardial infarction. Patient has the risk factors and with presentation of acute pain and arrhythmia with elevated troponin Patient has received aspirin Brilinta and heparin and is going to cardiac catheterization lab Due to history of hypertension and acute back pain will also get CTA to rule out aortic dissection Will also check echocardiogram Telemetry monitoring (3) Hyperlipidemia: Code(s): E78.5 - Hyperlipidemia, unspecified Status: Acute Assessment and Plan: Atorvastatin (4) Non-ST elevation CT (NSTEMI): Code(s): I21.4 - Non-ST elevation (NSTEMI) myocardial infarction Status: Acute Assessment and Plan: See above (5) Ventricular tachycardia: Code(s): I47.20 - Ventricular tachycardia, unspecified Status: Acute Assessment and Plan: See above (6) Aspiration pneumonia: Code(s): J69.0 - Pneumonitis due to inhalation of food and vomit Status: Acute Assessment and Plan: Chest x-ray shows bilateral infiltrates which is likely congestive heart failure with elevated BNP and lower extremity edema but patient may have had aspiration Start empiric Zosyn Check blood cultures (7) Pulmonary edema: Code(s): J81.1 - Chronic pulmonary edema Status: Acute Assessment and Plan: See above (8) Lactic acidosis: Code(s): E87.20 - Acidosis, unspecified Status: Acute Assessment and Plan: Lactic acidosis likely secondary to cardiac arrest. Patient blood pressure is now improved Repeat lactic acid level is ordered Although presentation is not suggestive of infection empiric Zosyn is ordered for aspiration pneumonia and cultures will be done. Conservative IVF due to congestive heart failure (9) Encephalopathy: Code(s): G93.40 - Encephalopathy, unspecified Status: Acute Assessment and Plan: Patient was unresponsive when arrived to the ER. My exam was limited as patient was on sedation. He would do and was upper extremities, he is over breathing the ventilator and pupils are react to light but there is still a possibility of him sustaining anoxic brain injury. Patient will be started on moderate TTM protocol to keep temperature below 36 C for next 24 hours Will perform sedation holiday and re-evaluate after that. Plan DVT prophylaxis -patient received heparin. Further anticoagulation depending on the CT scan and cardiac catheterization results Stress ulcer prophylaxis -PPI Nutrition - npo Code Status - Full Code I spoke to patient's and daughter at bedside updated them the patient's status including cardiac arrest respiratory failure and plan for CTA and cardiac catheterization. I also mentioned possibility of him sustaining anoxic brain injury. I answered all their questions. Total Critical Care Time - 50 minutes Due to a high probability of clinically significant, life threatening deterioration, the patient required my highest level of preparedness to intervene emergently and I personally spent this critical care time directly and personally managing the patient. This critical care time included obtaining a history; examining the patient; pulse oximetry; ordering and review of studies; arranging urgent treatment with development of a management plan; evaluation of patient's response to treatment; frequent reassessment; and discussions with other providers. It was exclusive of separately billable procedures and treating other patients and teaching time. Please see Assessment and Plan section and the rest of the note for further information on patient assessment and treatment Deputy Controller Consult Note Consult date: 01/24/25 Reason for consult: Cardiac arrest HPI: Shayan Bhatti is a 79 year old male suspected a past medical history of hyperlipidemia hypertension who does not see any physician frequently was brought to ER by EMS after sustaining a cardiac arrest. History was provided by patient's states the patient was sitting in the chair watching T me when he has complained off back pain. She states the patient has chronic back pain but it has been worse over last few days. He also was seen in physician's office for dizziness few days ago and had MRI. She does not know results of the MRI. After starting having back pain patient suddenly became unresponsive. She called 911 and was unable to get patient out of chair or flip him on his back because of his weight. EMS arrived and found patient to be in V-tach. CPR was initiated and patient was cardioverted to PEA. Patient apparently seemed to eat dose of epinephrine and CPR and was brought to ER. Patient was intubated in the ER with sedation etomidate and succinylcholine and then was started on Versed and fentanyl infusion. Workup here in the ER showed bilateral infiltrates on the chest x-ray, WBC 12.1 potassium 3.2 creatinine 1.5 lactic 6.6 troponin 0.1-9 and BNP 796. EKG showed sinus rhythm with ST elevation in lead [address] depression in aVL At the time of my evaluation patient is now intubated sedated and is in sinus rhythm. He is unresponsive. No additional history or review of system is obtainable from patient's . Systolic blood pressure in 150s now. Review of Systems Review of Systems: ROS unobtainable: Yes unobtainable due to endotracheal tube, unobtainable due to medical condition and unobtainable due to mental status PMFSH Past Medical History Medical History (Updated 01/24/25 @ 14:01 by Elbert Mora MD) Hyperlipidemia Hypertension Surgical History Surgical History History of excision of mass 08/16/20 excision of 3cm back mass Status post osteotomy tibia History of bilateral knee replacement History of bilateral knee arthroplasty History of carpal tunnel repair History of vasectomy History of hemorrhoidectomy History of tonsillectomy History of colonoscopy Social History Social History Alcohol intake: current Alcohol use details: rare Living arrangements: with family Occupation/Education: retired Meds Home Medications and Allergies Home Medications ?Medication ?Instructions ?Recorded ?Confirmed ?Type aspirin 81 mg chewable tablet 81 mg PO DAILY 07/26/20 09/03/20 History hydrochlorothiazide 25 mg tablet 25 mg PO DAILY 07/26/20 09/03/20 History Allergies Allergy/AdvReac Type Severity Reaction Status Date / Time No Known Allergies Allergy Verified 09/03/20 09:53 Vital Signs Vital Signs - 24 hr 01/24/25 11:20 01/24/25 11:30 01/24/25 11:41 Temperature Pulse Rate 126 H 105 H Respiratory Rate 20 13 Blood Pressure 56/27 L 91/56 L Pulse Oximetry 95 100 98 Oxygen Delivery Bag Valve Mask Mechanical Ventilation Fraction of Inspired Oxygen 01/24/25 11:42 01/24/25 11:42 01/24/25 11:45 Temperature Pulse Rate 103 H 103 H 99 Respiratory Rate 14 13 16 Blood Pressure 91/56 L Pulse Oximetry 100 100 99 Oxygen Delivery Fraction of Inspired Oxygen 01/24/25 11:47 01/24/25 11:57 01/24/25 11:59 Temperature 33.2 C L 33.9 C L Pulse Rate 102 H 93 92 Respiratory Rate 17 18 Blood Pressure 98/63 L 98/63 L Pulse Oximetry 98 96 95 Oxygen Delivery Mechanical Ventilation Fraction of Inspired Oxygen 65 01/24/25 12:00 01/24/25 12:01 01/24/25 12:09 Temperature 34.3 C L 34.7 C L Pulse Rate 92 92 94 Respiratory Rate 18 17 24 H Blood Pressure 95/60 L Pulse Oximetry 95 94 Oxygen Delivery Fraction of Inspired Oxygen 01/24/25 12:10 01/24/25 12:11 01/24/25 12:15 Temperature 36.0 C L 36.2 C L Pulse Rate 88 88 90 Respiratory Rate 12 21 H 21 H Blood Pressure 113/71 Pulse Oximetry 97 93 Oxygen Delivery Fraction of Inspired Oxygen 01/24/25 12:16 01/24/25 12:21 01/24/25 12:30 Temperature 36.2 C L 36.4 C L 36.4 C Pulse Rate 90 89 88 Respiratory Rate 20 21 H 21 H Blood Pressure 113/71 108/56 L Pulse Oximetry 94 93 Oxygen Delivery Fraction of Inspired Oxygen 01/24/25 12:31 01/24/25 12:33 01/24/25 12:41 Temperature 36.4 C 36.5 C Pulse Rate 89 91 Respiratory Rate 22 H 18 Blood Pressure 118/67 118/67 121/57 L Pulse Oximetry 93 95 Oxygen Delivery Fraction of Inspired Oxygen 01/24/25 12:55 01/24/25 12:57 01/24/25 12:59 Temperature 36.4 C L 36.4 C L 36.4 C L Pulse Rate 87 85 Respiratory Rate 17 22 H Blood Pressure 141/69 H 139/71 Pulse Oximetry 90 93 Oxygen Delivery Fraction of Inspired Oxygen 01/24/25 13:00 01/24/25 13:01 01/24/25 13:11 Temperature 36.4 C L 36.4 C L 36.3 C L Pulse Rate 85 83 84 Respiratory Rate 23 H 22 H 23 H Blood Pressure 136/71 142/76 H Pulse Oximetry 94 94 95 Oxygen Delivery Fraction of Inspired Oxygen 01/24/25 13:15 01/24/25 13:17 01/24/25 13:18 Temperature 36.3 C L Pulse Rate 92 88 72 Respiratory Rate 21 H 21 H 26 H Blood Pressure Pulse Oximetry 97 Oxygen Delivery Fraction of Inspired Oxygen 01/24/25 13:18 01/24/25 13:21 01/24/25 13:30 Temperature 36.2 C L 36.3 C L 36.3 C L Pulse Rate 72 85 93 Respiratory Rate 25 H 21 H 23 H Blood Pressure 182/83 H 159/76 H Pulse Oximetry 96 95 98 Oxygen Delivery Fraction of Inspired Oxygen 01/24/25 13:31 01/24/25 13:41 Temperature 36.2 C L 36.2 C L Pulse Rate 94 86 Respiratory Rate 27 H 23 H Blood Pressure 166/72 H 157/78 H Pulse Oximetry 99 97 Oxygen Delivery Fraction of Inspired Oxygen Exam Narrative: General: Pt is sedated, intubated and on mechanical ventilation Lungs/Chest: Trachea central Coarse BS B/L, bibasilar crackles Cardiac: RRR. Normal S1 S2. No murmurs Circulation: Pedal pulses are intact and symmetrical. Feet are warm Abdomen: Normal bowel sounds. Morbidly Obese. Soft. NT. ND. Extremities: Bilateral mild pitting edema, incision scars of total knee replacement on both knees : [place] in place Neurologic: Unable to assess due to sedation. Patient withdraws to pain in both upper extremities, over breathes the ventilator, PERRL Results Labs 01/24/25 11:28 01/24/25 11:28 Labs: Impressions Chest X-Ray 01/24/25 11:49 IMPRESSION: bilateral pneumonia versus pulmonary edema. Endotracheal tube with the tip above the jony. Retraction by about 2 to 3 cm is advised. Abdomen X-Ray 01/24/25 12:48 IMPRESSION: 1: NG tube tip in the stomach. Head CT 01/24/25 12:51 IMPRESSION: No acute intracranial findings. Short CBC 01/24/25 Range/Units 11:28 WBC 12.1 H (4.5-10.0) K/mm3 Hgb 13.4 L (14.0-18.0) g/dL Hct 44.3 (42.0-52.0) % Plt Count 217 (150-375) k/mm3 BMP 01/24/25 11:28 Sodium 140 Potassium 3.2 L Chloride 102 Carbon Dioxide 22 BUN 20 Creatinine 1.50 H Glucose 277 H Calcium 9.0 Cardiac Enzymes 01/24/25 Range/Units 11:28 Troponin I 0.129 H* (0.000-0.034) ng/mL Liver Function 01/24/25 Range/Units 11:28 Total Bilirubin 0.7 (0.2-1.3) mg/dL AST 287 H (17-59) U/L ALT 250 H (6-50) U/L Alkaline Phosphatase 69 (38-126) U/L Albumin 4.1 (3.5-5.1) g/dL Quality VTE Prophylaxis VTE prophylaxis: mechanical ordered and pharmacologic ordered Hospitalist MIPS Advance Care Plan I have confirmed that the patient's Advanced Care Plan is present, code status is documented, or surrogate decision maker is listed in patient medical record.: Yes Medication Reconciliation I have utilized all available resources to obtain, update and review the patients current medications (includes all prescriptions, OTC, herbals, cannabis, and nutritional supplements).: Yes
[2025-01-24 13:50] LABS: Reflex Lactic Acid Yes or No Add Lactic
[2025-01-24 14:22] LABS: Add Urine Microscopic? YES; Appearance Urine Turbid (Clear); Bacteria Urine 3+ /hpf; Bilirubin Urine Negative (Negative); Blood Urine 3+ (Negative); Color Urine Dark Yellow (Yellow); Glucose Urine UA 1+ mg/dL (Negative); Ketones Urine Trace mg/dL (Negative); Leukocyte Esterase Ur Trace LEU/UL (Negative); Mucus Urine Present /lpf; Need Manual Microscopic Reviewed; Nitrate Urine Negative (Negative); Non Pathogenic Casts >20; Protein Urine 4+ mg/dL (Negative); RBC Urine 51-100 /hpf (0-2); Squamous Epithelial Cell Urine Few /hpf (Few); WBC Urine 51-100 /hpf (0-3)
--- NOTE | 2025-01-24 15:44 | P.PCNCC_ITS ---
Cardiac Cath Procedure Note Date of procedure:: 01/24/25 Performing physician:: CATHETERIZATION LABORATORY REPORT Procedure Date: 01/24/2025 Hospice Care Transitions Coordinator: John Nuñez M.D., [facility]? Referring Physician: Freddy Stafford M.D. ? Anesthesia: Versed and Fentanyl were ordered and given in my presence at 14:35, procedure ended at 15:05. Supervision of nurse monitored moderate sedation with Versed and Fentanyl was provided for 30 minutes. Patient on Versed/Fentanyl drips prior to arrival to center medical and lab director, no additional IV sedation was administered during the procedure. Pre-op Diagnosis: Acute Coronary Syndrome Post-op Diagnosis: 1. 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 Elevated left ventricular end-diastolic pressure of 30mmHg Procedure(s): 1. Ultrasound-guided access of the right radial artery 2. Coronary angiography 3. Left heart cath 4. Ultrasound-guided access of the right common femoral artery 5. Insertion of intra-aortic balloon pump Access Site: Right radial artery Right common femoral artery Brief History and Clinical Indications: Patient is an 79 year old male who is urgently referred for [facility] for VT cardiac arrest, ishemic EKG. All risks, benefits and alternatives to left heart catheterization with or without percutaneous coronary intervention was discussed at length with the patient. Risk of complications including but not limited to bleeding, infection, arrhythmia, stroke, worsening kidney function, blood loss, groin hematoma, limb loss, emergency coronary artery bypass grafting, and even were discussed with the patient and all questions were answered. The patient understood and wished to proceed. Time out called, patient name, date of , medical record number, allergies, procedure performed, identify Hospice Care Transitions Coordinator, patient and staff member concurred with accurate data, procedure carried on. Findings: LEFT HEART CATHETERIZATION FINDINGS: 1. Left main: There is severe hazy distal left main disease of approximately 80%. 2. Left anterior descending: Heavy calcifications seen in the proximal LAD. There is an 80-90% stenosis in the mid LAD. There is a 70% stenosis in the distal LAD. 3. Ramus: No obstructive disease. 4. Left circumflex: The left circumflex artery is FOUNDRY WORKER APPRENTICE in the proximal portion. There are [id number] collaterals to the OM. 5. Right coronary artery: The RCA is FOUNDRY WORKER APPRENTICE in the mid portion. There are some [id number] bridging collaterals seen. There are [id number] collaterals to the distal RCA branches. 6. Left ventricle: A. End-diastolic pressure 30 mmHg. B. LV gram deferred. C. Gradient across aortic valve on catheter pullback: 18mmHg Description of Procedure: Informed consent signed and placed in the chart. Patient transferred to center medical and lab director room. Prepped and draped in usual sterile fashion. 2% lidocaine injected subcutaneously in right wrist area. 22-gauge venipuncture catheter used to access the right radial artery under ultrasound guidance. 6-FR slender sheath placed in right radial artery. Nitroglycerine and Verapamil were given intraarterial through the sheath. Versacore wire advanced under fluoroscopy 5F Tig 4 diagnostic catheter engaged Left Main Coronary Artery. 5F Tig 4 diagnostic catheter engaged Right Coronary Artery Multiple orthogonal angiogram obtained and reviewed 5F Pigtail diagnostic catheter crossed aortic valve to obtain LVEDP, LV angiogram deferred. 2% lidocaine in right groin area. Micropuncture needle used to access right common femoral artery with Seldinger technique under fluoroscopic and ultrasound guidance. J wire advanced, micropuncture cannula placed. Right iliofemoral angiogram performed, access confirmed and micropuncture cannula exchanged for 6-FR sheath. 6F sheath exchanged out for IABP sheath. IABP advanced over wire. IABP positioning confirmed via fluoroscopy and then sutured in place. Radial hemostasis was achieved by application of TR band. Disposition: ICU Plan: -[facility] shows multivessel coronary artery disease involving distal left main and 2V FOUNDRY WORKER APPRENTICE of LCX and RCA. LVEDP elevated at 30mmHg. IABP placed in center medical and lab director. Will transfer patient to tertiary center for CT Surgery evaluation for surgical revascularization. -Continue Heparin drip per ACS protocol. -Given VT arrest, will start Amiodarone drip. -TTE pending. -Continue ASA 81mg once daily, high intensity statin. -Hold off on additional P2Y12 inhibitors pending CABG eval. ? John Nuñez M.D. Interventional Cardiology
[2025-01-24] MEDS: MIDAZOLAM HCL (*CRX) 2 MG/2 ML VIAL IV PUSH (15:48)
[2025-01-24 16:04] LABS: Base Excess ABG -3.3 mEq/l (+/-2.0); PCO2 ABG 40.7 mmHg (35.0-45.0); pH ABG 7.351 (7.350-7.450)
[2025-01-24 16:05] LABS: Alveolar/Arterial O2 Gradient 365.4 mmHg; Oxygen Content ABG 19.4 %vol (16.0-22.0); Oxygen Saturation ABG 96.5 % (95.0-100.0); Total Hemoglobin 14.4 g/dL (12.0-18.0)
[2025-01-24 16:07] LABS: Device VENTILATOR; Fractional Inspired Oxygen 70 %; Oxyhemoglobin 95.5 % THb (90.0-100.0); PO2 FiO2 Ratio Arterial Blood 1.29 %; Site Drawn LEFT RADIAL
[2025-01-24 16:10] LABS: Arterial Blood Gas PEEP 8 cmH2O; Arterial Blood Gas Tidal Volume 420 ml; Arterial Blood Gas Vent Mode CMV; Arterial Blood Gas Ventilator rate 18 /MIN
[2025-01-24] MEDS: NOREPINEPHRINE 8 MG/D5W 250 ML 8 MG/250 ML BAG 9.38 MG IV CONT (16:15)
[2025-01-24 16:37] LABS: Hemoglobin A1C 5.5 % (<5.7)
--- NOTE | 2025-01-24 16:38 | ADMGEN ---
This patient, Shayan Bhatti, was admitted to Intensive Care Unit-1. Patient/family oriented to hospital policies and general routines including ID bracelet, bed and alarms, visiting hours, pain management, procedures, bathroom and other care routines, personal items, smoking policy, room service/diet, and visiting hours. Information on how to activate the Rapid Response Team has been discussed. Patient/Family are encouraged to report perceived risks to care and to ask questions if they do not understand what they are told or what they should do.
[2025-01-24 16:42] LABS: Hematocrit 45.5 % (42.0-52.0); Hemoglobin 14.1 g/dL (14.0-18.0); Mean Corpuscular Hemoglobin 29.5 pg (26-34); Mean Corpuscular Volume 95.2 fl (80-100); Mean Platelet Volume 9.5 fl (7.4-10.4); Platelet Count Result 250 k/mm3 (150-375); Red Blood Count 4.78 M/mm3 (4.6-6.20); Red Cell Distribution Width 13.6 % (11.5-14.5); White Blood Count 21.6 K/mm3 (4.5-10.0)
[2025-01-24 16:49] LABS: Amphetamine Screen Urine Negative (Negative); Barbiturate Screen Urine Negative (Negative); Benzodiazepines Screen Urine Negative (Negative); Cannabinoid Screen Urine Negative (Negative); Cocaine Screen Urine Negative (Negative); Methadone Screen Urine Negative (Negative); Opiate Screen Urine Negative (Negative); Phencyclidine Screen Urine Negative (Negative)
[2025-01-24 16:56] LABS: Creatine Kinase 45 U/L (55-170)
[2025-01-24 17:04] LABS: Procalcitonin 0.1 ng/mL
[2025-01-24 17:08] LABS: Band Neutrophils Percent 9 % (0-6); Lymphocytes Absolute Manual 1.72 K/mm3 (1.1-4.5); Lymphocytes Percent Manual 8 % (18-44); Monocytes Absolute Manual 1.08 K/mm3 (0.1-0.90); Monocytes Percent Manual 5 % (3-9); Neutrophils Absolute Manual 18.79 K/mm3 (1.3-6.7); Neutrophils Percent Manual 78 % (46-73); Platelet Estimate Adequate (Adequate); Schistocytes None Seen; Total Cells Counted 100
[2025-01-24 17:13] LABS: Cholesterol 175 mg/dL (0-200); HDL Direct 35 mg/dL; Triglycerides 281 mg/dL (<150)
[2025-01-24 17:17] LABS: INR 1.1; Prothrombin Time 14.9 Seconds (11.1-14.7)
[2025-01-24 17:18] LABS: Partial Thromboplastin Time 41.3 Seconds (22.3-36.8)
[2025-01-24 17:24] LABS: LDL Cholesterol Direct 77 mg/dL
[2025-01-24 17:34] LABS: Lactic Acid 7.3 mmol/L (0.7-2.0)
--- NOTE | 2025-01-24 18:00 | P.TS_ITS ---
Transfer Discharge Sum: Prov Provider Date of admission: 01/24/25 15:43 Primary care physician: Javier Leal, MD Admitting clinician: John Nuñez MD Attending physician on admission: John Nuñez Consults: 01/24/25 Consult to Physician Routine Comment: Consulting Provider: John Nuñez Reason for consultation: vtach arrest Has provider been notified: Yes Attending physician on discharge: John Nuñez Discharging clinician: John Nuñez Anticipated date of transfer: 01/24/25 Receiving physician/facility: [facility] DS: Admitting Diagnosis Discharge Date 01/24/25 Admitting Diagnosis VT Cardiac Arrest Acute Coronary Syndrome Transfer Discharge Sum: Med Medications Active and Home Medications: Home Medications atorvastatin 10 mg tablet 10 mg PO QPM 01/24/25 [History Confirmed 01/24/25] calcium carbonate (Tums) 300 mg PO QID PRN dyspepsia 01/24/25 [History Confirmed 01/24/25] hydrochlorothiazide 12.5 mg capsule 12.5 mg PO QAM 01/24/25 [History Confirmed 01/24/25] multivitamin (One Daily Multivitamin tablet) 1 tablet PO DAILY 01/24/25 [History Confirmed 01/24/25] Transfer Discharge Sum: Hosp Hospital Course Hospital course: 1. VT cardiac arrest 2. Acute coronary syndrome / MVCAD 3. Acute respiratory failure requiring mechanical ventilation 4. Hypertension 5. Hyperlipidemia 6. Possible acute kidney injury. Baseline renal function not known. PLAN: -[facility] shows multivessel coronary artery disease involving distal left main and 2V IMAGING AIDE of LCX and RCA. LVEDP elevated at 30mmHg. IABP placed in laboratory mechanic helper. Will transfer patient to tertiary center for CT Surgery evaluation for surgical revascularization. Time Spent with Patient Time attestation: Total time spent providing and/or coordinating transfer services: Total time spent: Greater than 30 minutes Exam Narrative: See H&P Note dated 01/24/2025 DS: Data Data Completed and Pending Labs on day of discharge: Labs from last 24 hours 01/24/25 11:46 Lactic Acid 6.6 H* Preliminary micro results at discharge 01/24/25 13:48 Blood Culture - Preliminary Blood 01/24/25 13:48 Blood Culture - Preliminary Blood
[2025-01-24] MEDS: AMIODARONE 360 MG/D5W 200 ML 360 MG/200 ML BAG 33.33 MG IV CONT (18:40)
[2025-01-24] MEDS: ROCURONIUM BROMIDE 50 MG/5 ML VIAL IV PUSH (18:50)
--- NOTE | 2025-01-24 21:59 | PC.NURSE ---
pt transfered to [facility] via [facility] supported on a ballon pump and ventilator
[2025-01-25 00:20] LABS: Glucose Point of Care 157 mg/dl (65-105)
[2025-01-26 12:35] LABS: Lactic Acid Reflex 6.6 mmol/L (0.7-2.0)
== END 2025-01-24 20:40 | disposition short-term general hospital (02) | DRG 270 ==
LOC: ANHED 13:28 → ANHCATHLAB 13:30 → ANHICU 15:44
PROVIDERS: Internal Medicine; Admitting Provider Internal Medicine; Emergency Provider Emergency Medicine; PCP Internal Medicine; Visit Provider Internal Medicine
PROC: 4A023N7 Measurement of Cardiac Sampling and Pressure, Left Heart, Percutaneous Approach (ICD-10-PCS; CPT 93452; principal; 2025-01-24 13:15)
PROC: 5A02210 Assistance with Cardiac Output using Balloon Pump, Continuous (ICD-10-PCS; 2025-01-24 13:15)
DX: I21.4 Non-ST elevation (NSTEMI) myocardial infarction (principal); I46.9 Cardiac arrest, cause unspecified; J96.01 Acute respiratory failure with hypoxia; J69.0 Pneumonitis due to inhalation of food and vomit; I47.20 Ventricular tachycardia, unspecified; E87.20 Acidosis, unspecified; G93.40 Encephalopathy, unspecified; I25.10 Atherosclerotic heart disease of native coronary artery without angina pectoris; I10 Essential (primary) hypertension; E87.5 Hyperkalemia; E78.5 Hyperlipidemia, unspecified; Z96.653 Presence of artificial knee joint, bilateral; Z79.82 Long term (current) use of aspirin
CPT/HCPCS: 31500; 33967; 36415; 36600; 70450; 71275; 74174; 80053; 80061; 80307; 81001; 82550; 82805; 82948; 83036; 83605; 83735; 83880; 84145; 84484; 85018; 85025; 85610; 85730; 87040; 87086; 93005; 93458; 94002; 96365; 96366; 96375; 99291; A9270; C1769; C1887; C1894; J0282; J0330; J0612; J1644; J1938; J2003; J2250; J2305; J2543; J3010; J7040; Q9967